=== PATIENT | male | born 1995 | race Caucasian/White ===

== ENCOUNTER → 2022-12-14 | Outpatient (CLI) | payer OTHER | LOC: M RAD 07:06 | PROVIDERS: ATTEND Nurse Practitioner Family | DX: M25.551 Pain in right hip (principal); M16.0 Bilateral primary osteoarthritis of hip ==

== ENCOUNTER → 2023-01-06 | Outpatient (CLI) | payer OTHER | LOC: M WHC 10:45 → EDUNIT# 11:30 | PROVIDERS: ATTEND Nurse Practitioner Family | DX: N63.42 Unspecified lump in left breast, subareolar (principal); N63.41 Unspecified lump in right breast, subareolar | CPT/HCPCS: 76641; 77066; G0279 ==

== ENCOUNTER → 2023-04-30 | Outpatient (CLI) | payer OTHER ==
[2023-04-30 16:01] LABS: HEMATOCRIT 42.9 % (42.0-52.0); HEMOGLOBIN 13.7 g/dl (13.5-17.5); MEAN CORPUSCULAR HEMOGLOBIN 26.4 pg (27.0-33.0); MEAN CORPUSCULAR HGB CONC 31.9 g/dl (32.0-36.5); MEAN CORPUSCULAR VOLUME 82.8 fl (80.0-96.0); PLATELET COUNT, AUTOMATED 245 10^3/uL (150-450); RED BLOOD COUNT 5.18 10^6/uL (4.30-6.10); WHITE BLOOD COUNT 8.5 10^3/uL (4.0-10.0)
[2023-04-30 16:34] LABS: ALBUMIN 4.1 G/DL (3.2-5.2); ALKALINE PHOSPHATASE 82 U/L (46-116); ALT/SGPT 19 U/L (7.0-40); AST/SGOT 17 U/L (<34); BILIRUBIN,DIRECT < 0.1 MG/DL (<0.4); BILIRUBIN,TOTAL 0.3 MG/DL (0.3-1.2); BLOOD UREA NITROGEN 16 MG/DL (9-23); CALCIUM LEVEL 8.7 MG/DL (8.5-10.1); CARBON DIOXIDE LEVEL 26 MMOL/L (20-31); CHLORIDE LEVEL 107 MMOL/L (98-107); CREATININE FOR GFR 1.49 MG/DL (0.70-1.30); FOLLICLE STIMULATING HORMONE 2.3 mIU/ML (1.4-18.1); FREE T4 1.31 NG/DL (0.89-1.76); GLOMERULAR FILTRATION RATE 59.4 (>60); GLUCOSE, FASTING 92 MG/DL (60-100); LUTEINIZING HORMONE 2.8 mIU/ML (1.5-9.3); POTASSIUM SERUM 3.9 MMOL/L (3.5-5.1); PROLACTIN 5.74 NG/ML (2.1-17.7); SODIUM LEVEL 139 MMOL/L (136-145); TOTAL PROTEIN 7.6 G/DL (5.7-8.2)
[2023-04-30 16:35] LABS: THYROID STIMULATING HORMONE 0.849 uIU/ML (0.55-4.78)
[2023-04-30 16:36] LABS: ESTRADIOL < 19.0 PG/ML (<39.8)
[2023-04-30 16:37] LABS: PROGESTERONE 0.36 NG/ML (0.28-1.22)
== END ==
LOC: M LAB 15:06
PROVIDERS: ATTEND Plastic Surgery Surgery of the Hand
DX: N62 Hypertrophy of breast (principal)

== ENCOUNTER 2023-07-01 05:53 | Observation (INO) | payer OTHER ==
[~2023-07-01] VITALS: Ht 180.3 cm; Wt 96.2 kg
[~2023-07-01 05:53] MED LIST: ADAL80PE4; AMIT10TA7 PO; CYAN100049 PO; ERGO500029 PO; RIZA10TA58 PO; SILD50TA2 PO; TEST200I14; TIZA10TA PO
[2023-07-01] MEDS ORDERED: HEPARIN SOD (PORCINE) 5000UNITS/ML 1ML VIAL/SYRINGE SQ ONE (06:00)
[2023-07-01] MEDS ORDERED: ceFAZolin SOD 2 GM in IV 1 EA IV ONE (06:00)
[2023-07-01] MEDS ORDERED: LR 1,000 ML IV SCH ×2 (06:35→11:45)
[2023-07-01] MEDS ORDERED: LIDOCAINE 1% MDV 20ML VIAL As Ordered ONE (07:14)
[2023-07-01] MEDS ORDERED: GENTAMICIN SULF 80MG/2ML VIAL As Ordered ONE (07:14)
[2023-07-01] MEDS ORDERED: EPINEPHrine INJ 1 MG/ML 1ML AMP As Ordered ONE (07:15)
[2023-07-01] MEDS ORDERED: LIDOCAINE 2% 100MG/5ML SDV (FOR ANES.) As Ordered ONE (07:30)
[2023-07-01] MEDS ORDERED: propofoL 200 MG/20 ML VIAL As Ordered ONE (07:30)
[2023-07-01] MEDS ORDERED: ONDANSETRON 4MG 2ML VIAL As Ordered ONE ×2 (07:30→09:35)
[2023-07-01] MEDS ORDERED: fentaNYL 250 MCG/5 ML INJECTION As Ordered ONE (07:31)
[2023-07-01] MEDS ORDERED: MIDAZOLAM INJ 2MG/2ML VIAL As Ordered ONE (07:31)
[2023-07-01] MEDS ORDERED: ROCURONIUM BROMIDE 50MG/5ML VIAL As Ordered ONE ×3 (07:32→10:37)
[2023-07-01] MEDS ORDERED: ACETAMINOPHEN 1000MG 100ML IV BAG As Ordered ONE (08:22)
[2023-07-01] MEDS ORDERED: SUGAMMADEX SODIUM 500 MG/5 ML VIAL (BRIDION) As Ordered ONE (09:24)
[2023-07-01] MEDS ORDERED: dexmedeTOMIDine (4MCG/ML)200MCG/50ML BTL (PRECEDEX) As Ordered ONE (09:24)
[2023-07-01] MEDS ORDERED: HYDROmorphone HCL 2MG/ML 1ML VIAL As Ordered ONE (09:25)
[2023-07-01] MEDS ORDERED: fentaNYL 100 MCG/2 ML INJECTION IV PRN (11:45)
[2023-07-01] MEDS ORDERED: ONDANSETRON 4MG 2ML VIAL IV PRN ×2 (11:45→12:05)
[2023-07-01] MEDS ORDERED: traMADol 50 MG TAB PO PRN (12:05)
[2023-07-01] MEDS ORDERED: ACETAMINOPHEN TAB 650MG DOSE (2X325MG) PO PRN (12:05)
[2023-07-01] MEDS: oxyCODONE 5MG TAB PO PRN ×2 (12:18→12:49)
[2023-07-01 13:15] VITALS: BP 139/90; TEMP 97.9; O2SAT 100
[2023-07-01] MEDS: LR 1,000 ML IV SCH (13:49)
[2023-07-01] MEDS: ceFAZolin SOD 1 GM in D5W MINI-BAG PLUS 50 ML IV SCH (15:25)
[2023-07-01] MEDS: PERCOCET 5MG/325MG TAB PO PRN ×2 (15:25→20:10)
[2023-07-01 19:20] VITALS: BP 116/62; TEMP 98.8; O2SAT 99
[2023-07-01 21:42] VITALS: BP 113/68; TEMP 98.2; O2SAT 95
[2023-07-02] MEDS: ceFAZolin SOD 1 GM in D5W MINI-BAG PLUS 50 ML IV SCH (00:38)
[2023-07-02] MEDS: PERCOCET 5MG/325MG TAB PO PRN ×2 (01:23→10:13)
[2023-07-02 01:56] VITALS: BP 100/64; TEMP 97.7; O2SAT 96
[2023-07-02] MEDS: LR 1,000 ML IV SCH (03:49)
[2023-07-02 06:30] VITALS: BP 137/78; TEMP 98.2; O2SAT 98
[2023-07-02 09:52] VITALS: BP 128/76; TEMP 97.7; O2SAT 97
[2023-07-02] MEDS ORDERED: PERCOCET PO (12:14)
[2023-07-02] MEDS ORDERED: OXYC1TAB23 PO (16:30)
== END 2023-07-02 13:50 | disposition home or self-care (01) ==
LOC: M SDC 05:53 → M MS5PR 05:54
PROVIDERS: ADMIT Plastic Surgery Surgery of the Hand; ATTEND Plastic Surgery Surgery of the Hand
DX: N62 Hypertrophy of breast (principal); Z91.013 Allergy to seafood; G43.909 Migraine, unspecified, not intractable, without status migrainosus; Z79.899 Other long term (current) drug therapy
CPT/HCPCS: 19300; 87635; 88300; 88305; 96365; 96366; C9290; J0131; J0171; J0690; J1100; J1170; J1580; J2250; J2405; J3010

== ENCOUNTER → 2024-02-24 | Outpatient (REF) ==
[~2024-02-24] MED LIST changes: +OXYC1TAB23 PO; +PERCOCET PO
== END ==
LOC: M PLAIMG 09:34
PROVIDERS: ATTEND Internal Medicine
DX: R52 Pain, unspecified (principal)